=== PATIENT | male | born 1995 | race Caucasian/White ===

== ENCOUNTER 2017-07-18 23:53 | Emergency (ER) | payer BC, OTHER ==
[~2017-07-18] VITALS: Ht 188 cm; Wt 75.5 kg
[2017-07-19] VITALS: TEMP 36.9; Ht 188 cm; Wt 75.5 kg
[2017-07-19 00:39] LABS: BASO % 0.4 %; BASO ABS # 0.05 K/uL (0-0.2); COMPLETE YES; EOS % 2.5 %; HEMATOCRIT 46.2 % (42-52); IG% 0.3 %; LYMPH % 38.2 %; LYMPH ABS # 4.29 K/uL (1.2-3.4); MEAN CELL VOLUME 86.5 fL (80-100); MEAN CORPUSCULAR HEMOGLOBIN 32.8 pg (25-34); MEAN CORPUSCULAR HGB CONC 37.9 g/dl (32-36); MEAN PLATELET VOLUME 9.6 fL (7.4-10.4); MONO % 6.9 %; NEUT % 51.7 %; PLATELET COUNT 278 K/uL (130-400); RED BLOOD COUNT 5.34 M/uL (4.7-6.1); WHITE BLOOD COUNT 11.24 K/uL (4.8-10.8)
[2017-07-19 00:41] LABS: URINE APPEARANCE CLEAR (CLEAR); URINE BILIRUBIN NEG (NEG); URINE COLOR YELLOW; URINE NITRITE NEG (NEG); URINE PH 5.5 (4.5-7.5); URINE SPECIFIC GRAVITY 1.021 (1.000-1.030); UROBILINOGEN NEG (NEG); ZZUR CULT IF INDIC CLEAN CATCH NO
[2017-07-19 00:43] LABS: MANUAL MICROSCOPIC REQUIRED? NO; REVIEW REQ? NO
[2017-07-19 00:56] LABS: BUN/CREATININE RATIO 11.8 (10-20); CALCIUM 8.5 mg/dl (8.5-10.1); CREATININE 1.26 mg/dl (0.60-1.40); POTASSIUM 3.5 mmol/L (3.5-5.1)
[2017-07-19 01:05] LABS: ALB/GLOB RATIO 1.4 (0.9-2); THYROID STIMULATING HORMONE 2.6 uIu/ml (0.300-4.500)
[2017-07-19 01:15] LABS: BENZODIAZEPINE, URINE NEG (NEG); COCAINE,URINE NEG (NEG); PHENCYCLIDINE, URINE NEG (NEG)
[2017-07-19] MEDS ORDERED: NICOTINE 21 MG/24 HR TDSY ONE (01:31)
[2017-07-19 06:29] VITALS: BP 122/71; PULSE 101; O2SAT 97
--- NOTE | 2017-07-19 06:40 | EMERGENCY ROOM VISIT NOTE ---
History Report prepared by Ravi: Kenya Osman Under the Supervision of: Dr. Adore Choi D.O. First contact with patient: 00:22 Chief Complaint: MENTAL HEALTH EVALUATION Stated Complaint: MENTAL HEALTH EVAL History of Present Illness The patient is a 22 year old male who presents to the Emergency Room for persistent mental health problems starting [employer]. The patient was brought to the ED by police. He states that he was in a bad mood today when he went to a bar. He was drinking and talking to another person at the bar about how he dislikes his generation because he does not fit in with them. He states that he might have said something about harming himself and thinks that the slasher might have been the one to call the police. He did not fight with the line pilot. He admits to having thoughts about harming himself regularly. He reports that he has stepped out [place] traffic on the highway with an intention to hurt himself before. He has taken medications for anxiety and depression in the past, but states that they did not work for him. He no longer takes any medications and is not seeing a counselor. He admits to daily alcohol and marijuana use. He does not think that he has a problem with alcohol. The history is limited due to the patient's intoxication. Source of History: patient History Limited By: intoxication Onset: [employer] Position: other (global) Quality: other (mental health problems) Timing: other (persistent) Note: Pt admits to thoughts of hurting himself. Review of Systems See HPI for pertinent positives & negatives. A total of 10 systems reviewed and were otherwise negative. Past Medical & Surgical Medical Problems: (1) Depression Family History No pertinent family history stated. Social History Smoking Status: Current Every Day Smoker Occupation Status: unemployed Current/Historical Medications No Active Prescriptions or Reported Meds Allergies Coded Allergies: No Known Allergies (Verified , 07/19/17) Physical Exam Vital Signs Date Time Temp Pulse Resp B/P (MAP) Pulse Ox O2 Delivery O2 Flow Rate FiO2 07/19/17 06:29 101 18 122/71 97 Room Air 07/19/17 00:00 36.9 121 18 132/90 97 Room Air Physical Exam GENERAL: alert, well appearing, well nourished, no distress, non-toxic EYE EXAM: normal conjunctiva, PERRL and EOM's grossly intact OROPHARYNX: no exudate, no erythema, lips, buccal mucosa, and tongue normal and mucous membranes are moist NECK: supple, no nuchal rigidity, no adenopathy, non-tender LUNGS: Clear to auscultation. Normal chest wall mechanics HEART: no murmurs, S1 normal and S2 normal ABDOMEN: abdomen soft, non-tender, normo-active bowel sounds, no masses, no rebound or guarding. BACK: Back is symmetrical on inspection and there is no deformity, no midline tenderness, no CVA tenderness. SKIN: no rashes and no bruising UPPER EXTREMITIES: upper extremities are grossly normal. Normal range of motion and normal pulses. LOWER EXTREMITIES: No pitting edema. Normal range of motion and normal pulses. NEURO EXAM: Normal sensorium, cranial nerves II-XII grossly intact, normal speech, no gross weakness of arms, no gross weakness of legs. Normal gait. PSYCH: Depression. Positive SI (patient states daily). Medical Decision & Procedures Laboratory Results 07/19/17 00:25 Red Blood Count 5.34, Mean Corpuscular Volume 86.5, Mean Corpuscular Hemoglobin 32.8, Mean Corpuscular Hemoglobin Concent 37.9, Mean Platelet Volume 9.6, Neutrophils (%) (Auto) 51.7, Lymphocytes (%) (Auto) 38.2, Monocytes (%) (Auto) 6.9, Eosinophils (%) (Auto) 2.5, Basophils (%) (Auto) 0.4, Neutrophils # (Auto) 5.82, Lymphocytes # (Auto) 4.29, Monocytes # (Auto) 0.77, Eosinophils # (Auto) 0.28, Basophils # (Auto) 0.05 07/19/17 00:25 Test 07/19/17 00:24 07/19/17 00:25 Urine Color YELLOW Urine Appearance CLEAR (CLEAR) Urine pH 5.5 (4.5-7.5) Urine Specific Lerna 1.021 (1.000-1.030) Urine Protein NEG (NEG) Urine Glucose (UA) NEG (NEG) Urine Ketones TRACE (NEG) Urine Occult Blood NEG (NEG) Urine Nitrite NEG (NEG) Urine Bilirubin NEG (NEG) Urine Urobilinogen NEG (NEG) Urine Leukocyte Esterase NEG (NEG) Urine Opiates Screen NEG (NEG) Urine Methadone, Qualitative NEG (NEG) Urine Barbiturates NEG (NEG) Urine Phencyclidine (PCP) Level NEG (NEG) Ur Amphetamine/Methamphetamine NEG (NEG) MDMA (Ecstasy) Screen NEG (NEG) Urine Benzodiazepines Screen NEG (NEG) Urine Cocaine Metabolite NEG (NEG) Urine Marijuana (THC) POS (NEG) White Blood Count 11.24 K/uL (4.8-10.8) Red Blood Count 5.34 M/uL (4.7-6.1) Hemoglobin 17.5 g/dL (14.0-18.0) Hematocrit 46.2 % (42-52) Mean Corpuscular Volume 86.5 fL (80-100) Mean Corpuscular Hemoglobin 32.8 pg (25-34) Mean Corpuscular Hemoglobin Concent 37.9 g/dl (32-36) Platelet Count 278 K/uL (130-400) Mean Platelet Volume 9.6 fL (7.4-10.4) Neutrophils (%) (Auto) 51.7 % Lymphocytes (%) (Auto) 38.2 % Monocytes (%) (Auto) 6.9 % Eosinophils (%) (Auto) 2.5 % Basophils (%) (Auto) 0.4 % Neutrophils # (Auto) 5.82 K/uL (1.4-6.5) Lymphocytes # (Auto) 4.29 K/uL (1.2-3.4) Monocytes # (Auto) 0.77 K/uL (0.11-0.59) Eosinophils # (Auto) 0.28 K/uL (0-0.5) Basophils # (Auto) 0.05 K/uL (0-0.2) RDW Standard Deviation 41.5 fL (36.4-46.3) RDW Coefficient of Variation 13.2 % (11.5-14.5) Immature Granulocyte % (Auto) 0.3 % Immature Granulocyte # (Auto) 0.03 K/uL (0.00-0.02) Anion Gap 8.0 mmol/L (3-11) Est Creatinine Clear Calc Drug Dose 99.0 ml/min Estimated GFR () 93.9 Estimated GFR (Non- 81.0 BUN/Creatinine Ratio 11.8 (10-20) Calcium Level 8.5 mg/dl (8.5-10.1) Total Bilirubin 0.5 mg/dl (0.2-1) Aspartate Amino Transf (AST/SGOT) 17 U/L (15-37) Alanine Aminotransferase (ALT/SGPT) 34 U/L (12-78) Alkaline Phosphatase 77 U/L (45-117) Total Protein 8.1 gm/dl (6.4-8.2) Albumin 4.7 gm/dl (3.4-5.0) Globulin 3.4 gm/dl (2.5-4.0) Albumin/Globulin Ratio 1.4 (0.9-2) Thyroid Stimulating Hormone (TSH) 2.600 uIu/ml (0.300-4.500) Ethyl Alcohol mg/dL 210.0 mg/dl (0-3) Laboratory results per my review. Medications Administered Medications (Trade) Dose Ordered Sig/Hermelindo Route Start Time Stop Time Status Last Admin Dose Admin Nicotine (Nicoderm Cq 21MG Patch) 1 patch STK-MED ONCE .ROUTE 07/19/17 01:31 07/19/17 01:32 DC 07/19/17 01:31 1 PATCH ED Course 0104: The patient was evaluated in room A7. A complete history and physical exam was performed. 0131: Nicotine 1 patch TOP. 0638: The medical case worker has evaluated the patient. He will be discharged home. Medical Decision Differential diagnosis: Etiologies such as mood disorder, infection, hypoglycemia, electrolyte abnormalities, cardiac sources, intracerebral event, toxicologic, neurologic, as well as others were entertained. Patient well-appearing here although initially intoxicated. Patient was evaluated upon sobriety by the psychiatric medical case worker. Patient initially brought is 302, however upon sobriety denied SI/H I. Admits to almost daily alcohol use. Patient was counseled on appropriate of alcohol and risks of alcohol as a coping strategy, and alcohol abuse. Discussed substance abuse with the patient also. Patient given resources an outpatient referral by medical case worker. Patient encouraged to follow-up as an outpatient to return to the emergency room for any worsening symptoms or new concerns. I did not feel patient is an imminent risk to himself or others. Medication Reconcilliation Current Medication List: was personally reviewed by me Blood Pressure Screening Patient's blood pressure: Normal blood pressure Blood pressure disposition: Did not require urgent referral Impression Primary Impression: Depression Additional Impressions: Anxiety Alcohol abuse Substance abuse Scribe Attestation The scribe's documentation has been prepared under my direction and personally reviewed by me in its entirety. I confirm that the note above accurately reflects all work, treatment, procedures, and medical decision making performed by me. Departure Information Dispostion Home / Self-Care Prescriptions No Active Prescriptions or Reported Meds Referrals No Doctor, Assigned (PCP) Patient Instructions [facility] Additional Instructions Please follow up with the recommendations provided by the medical case worker. Please use alcohol responsibly and did not use it as a coping strategy for your anxiety and depression. If you have any new or concerning symptoms, or feeling worse regarding her depression or anxiety, have thoughts of wanting to hurt herself or someone else, or any other concerns please return the emergency room. Problem Qualifiers Primary Impression: Depression Depression Type: unspecified Qualified Codes: F32.9 - Major depressive disorder, single episode, unspecified
== END 2017-07-19 06:53 | disposition home or self-care (01) ==
LOC: C.EDB 23:55 → C.EDA 07-19 06:53
DX: F32.9 Major depressive disorder, single episode, unspecified (principal); F41.9 Anxiety disorder, unspecified; F10.10 Alcohol abuse, uncomplicated; F19.10 Other psychoactive substance abuse, uncomplicated; F17.210 Nicotine dependence, cigarettes, uncomplicated